=== PATIENT | female | born 1940 | race Caucasian/White ===

== ENCOUNTER 2016-08-10 11:36 | Emergency (ER) | payer MEDICARE, OTHER ==
[2016-08-10] MEDS ORDERED: ASPIRIN TABLET 325 MG TAB PO ONE (11:55)
[2016-08-10] MEDS ORDERED: HYDROcodone 5MG/APAP 325MG 1 EA TAB PO ONE (11:56)
--- NOTE | 2016-08-10 12:32 | RAD ---
EXAM DESCRIPTION: XR CHEST 2 VIEWS CLINICAL HISTORY: chest pain COMPARISON: None Available. TECHNIQUE: Two-views of the chest. FINDINGS: Normal heart size. Mildly tortuous aorta. Minimal faint opacity in the frontal radiograph left costophrenic angle compatible with atelectasis or early infiltrate. Right lung is clear. No pleural effusion. No pneumothorax Multilevel disk degeneration in the thoracolumbar spine. No acute bony abnormality IMPRESSION: Left lower lung zone small opacity probably subsegmental atelectasis or early focal infiltrate, nonspecific Electronically signed by: Rory Clark MD 08/10/2016 12:29
[2016-08-10] MEDS ORDERED: cefTRIAXone SODIUM 1 GM in SODIUM CHL 0.9% 50ML MIN-BAG+ 50 ML IVPB ONE (13:10)
[2016-08-10] MEDS ORDERED: IPRATROPIUM/ALBUTEROL 3 ML VIAL NEB ONE (13:11)
[2016-08-10] MEDS ORDERED: cefTRIAXone SODIUM 1 GM VIAL ONE (13:26)
[2016-08-10] MEDS ORDERED: SODIUM CHL 0.9% 50ML MIN-BAG+ 50 ML IVPB ONE (13:27)
--- NOTE | 2016-08-10 16:42 | ED.PDOC ---
History of Present Illness - General Chief Complaint: Chest Pain/IA Stated Complaint: chest pain Time Seen by Provider: 08/10/16 11:54 Source: patient Exam Limitations: no limitations - History of Present Illness Initial Comments: the patient is a 75-year-old femalepresented to the emergency room secondary to chest pain directly to the left of the sternum. It is primarily at the lower border of the sternum. It is significantly tender to palpation. No bruising and no deformity is noted. It is worse with taking a deep breath. It is worse with twisting and turning. Pain has been present and worsening for the last 24-36 hours. No syncope or near syncope and no palpitations. Pain is not made worse with aerobic activity. No back pain. Timing/Duration: 24 hours Severity: moderate Improving Factors: immobilization Worsening Factors: movement Associated Symptoms: chest pain, malaise Allergies/Adverse Reactions: Allergies NO KNOWN ALLERGY Allergy (Verified 09/14/12 08:25) Home Medications: Ambulatory Orders Amlodipine Besylate 10 mg PO HS 09/14/12 Atorvastatin Calcium [Lipitor] 40 mg PO HS 09/14/12 Glimepiride 4 mg PO DAILY 09/14/12 Insulin Detemir [Levemir Flexpen] 30 unit SC HS 09/14/12 Linagliptin [Tradjenta] 5 mg PO AM 09/14/12 Lisinopril & Hydrochlorothiazi [Lisinopril/Hydrochlorothi] 20 - 25 tab PO AM Metoprolol Succinate [Metoprolol Succinate ER] 200 mg PO HS 09/14/12 Omeprazole 40 mg PO BEDTIME 05/29/13 Aspirin [Baby Aspirin] 81 mg PO QD 12/07/13 Levofloxacin 500 mg PO DAILY #7 tab 08/10/16 Review of Systems - Review of Systems Constitutional: States: no symptoms reported EENTM: States: no symptoms reported Respiratory: States: no symptoms reported Cardiology: States: see HPI Gastrointestinal/Abdominal: States: no symptoms reported Genitourinary: States: no symptoms reported Musculoskeletal: States: no symptoms reported Skin: States: no symptoms reported Neurological: States: no symptoms reported Endocrine: States: no symptoms reported Hematologic/Lymphatic: States: no symptoms reported All other Systems: No Change from Baseline Past Medical History (General) - Patient Medical History Hx Seizures: No Hx Stroke: No Hx Asthma: No Hx of COPD: No Hx Cardiac Disorders: No Hx Congestive Heart Failure: No Hx Pacemaker: No Hx Hypertension: Yes Hx Diabetes: Yes Hx Cancer: No Hx MRSA: No Surgical History: cholecystectomy - Vaccination History Hx Tetanus, Diphtheria Vaccination: No Hx Influenza Vaccination: Yes Hx Pneumococcal Vaccination: Yes - Social History Hx Alcohol Use: No Hx Substance Use: No Hx Physical Abuse: No Hx Emotional Abuse: No - Female History Patient is a Female of Child Bearing Age (10 -59 yrs old): No Family Medical History - Family History Mother Family History: Unknown Physical Exam - Physical Exam General Appearance: Alert, Anxious, No apparent distress Eye Exam: bilateral normal Ears, Nose, Throat: normal ENT inspection, normal pharynx Neck: non-tender, full range of motion, supple Respiratory: lungs clear, normal breath sounds, no respiratory distress, no accessory muscle use Cardiovascular/Chest: normal peripheral pulses, regular rate, rhythm, no edema Peripheral Pulses: radial,right: 2+, radial,left: 2+, dorsalis pedis,right: 2+, dorsalis pedis,left: 2+ Gastrointestinal/Abdominal: normal bowel sounds, non tender, soft Rectal Exam: deferred Back Exam: normal inspection, no CVA tenderness Extremity: normal range of motion, non-tender, normal inspection, no pedal edema , normal capillary refill Neurologic: alert, normal mood/affect, oriented x 3 Skin Exam: normal color Comments: Vital Signs - 24 hr 08/10/16 08/10/16 11:54 12:43 Temperature 97.6 F Pulse Rate [ 69 65 monitor] Respiratory 20 20 Rate Blood Pressure 191/102 141/62 [LA] O2 Sat by Pulse 95 96 Oximetry Progress - Progress Progress: 08/10/16 16:43 the patient is a 75-year-old female but appears to have significant costochondritis possibly due to an underlying left lower pneumonia. The patient received a dose of Rocephin here. She'll be placed on oral Levaquin for the next 7 days. ER warnings were given for any worsening. Motrin or Tylenol can be used for discomfort. She needs to keep herself well hydrated and she was mildly dehydrated here today. She needs to follow up with her primary care doctor before the weekend. - Results/Orders Results/Orders: Laboratory Tests 08/10/16 08/10/16 11:55 15:45 WBC 6.3 RBC 4.46 Hgb 12.6 Hct 37.0 MCV 83.1 MCH 28.2 MCHC 34.0 RDW 13.4 Plt Count 221 MPV 8.5 Absolute Neuts (auto) 3.40 Absolute Lymphs (auto) 2.00 Absolute Monos (auto) 0.60 Absolute Eos (auto) 0.20 Absolute Basos (auto) 0.00 Neutrophils % 54.9 Lymphocytes % 32.0 Monocytes % 9.2 H Eosinophils % 3.3 Basophils % 0.6 PT 10.7 INR 0.950 PTT (SP) 34.4 D-Dimer, Quantitative 317 H* Sodium 139 Potassium 4.0 Chloride 102 Carbon Dioxide 28 Anion Gap 13.0 BUN 34 H Creatinine 1.44 H BUN/Creatinine Ratio 23.6 H Random Glucose 187 H Serum Osmolality 290.1 Calcium 9.9 Total Bilirubin 0.5 AST 35 ALT 28 Alkaline Phosphatase 67 Creatine Kinase 148 H 136 CK-MB (CK-2) 2.0 2.0 CK-MB (CK-2) % Not Reportable Not Reportable Troponin I 0.08 H* < 0.02 B-Natriuretic Peptide 166.0 H Serum Total Protein 8.2 Albumin 4.3 Globulin 3.9 H Albumin/Globulin Ratio 1.1 Amylase 88 Lipase 37 chest x-ray shows a left basilar and possibly lingular pneumonia versus atelectasis. EKG shows normal sinus rhythm with a right bundle branch block. No new acute ST segment changes consistent with acute ischemia. Departure - Departure Clinical Impression: Costochondritis, acute, Dehydration Pneumonia Qualifiers: Pneumonia type: due to unspecified organism Laterality: left Lung location: lower lobe of lung Qualifier Code: (J18.9) Pneumonia, unspecified organism Disposition: Discharge to Home or Self Care Condition: Fair Departure Forms: ED Discharge - Pt. Copy, Patient Portal Self Enrollment Instructions: DI for Pneumonia -- Adult, DI for Costochondritis Diet: diabetic diet Activity: increase activity as tolerated Referrals: Cesar Lyons III, MD [Primary Care Provider] - 1-2 Weeks Prescriptions: Levofloxacin 500 mg PO DAILY #7 tab Home Medications: Ambulatory Orders Amlodipine Besylate 10 mg PO HS 09/14/12 Atorvastatin Calcium [Lipitor] 40 mg PO HS 09/14/12 Glimepiride 4 mg PO DAILY 09/14/12 Insulin Detemir [Levemir Flexpen] 30 unit SC HS 09/14/12 Linagliptin [Tradjenta] 5 mg PO AM 09/14/12 Lisinopril & Hydrochlorothiazi [Lisinopril/Hydrochlorothi] 20 - 25 tab PO AM Metoprolol Succinate [Metoprolol Succinate ER] 200 mg PO HS 09/14/12 Omeprazole 40 mg PO BEDTIME 05/29/13 Aspirin [Baby Aspirin] 81 mg PO QD 12/07/13 Levofloxacin 500 mg PO DAILY #7 tab 08/10/16 Additional Instructions: the patient is a 75-year-old female but appears to have significant costochondritis possibly due to an underlying left lower pneumonia. The patient received a dose of Rocephin here. She'll be placed on oral Levaquin for the next 7 days. ER warnings were given for any worsening. Motrin or Tylenol can be used for discomfort. She needs to keep herself well hydrated and she was mildly dehydrated here today. She needs to follow up with her primary care doctor before the weekend.
[2016-08-10 17:53] VITALS: O2SAT 97
[2016-08-10 17:55] VITALS: BP 148/84; TEMP 97
== END 2016-08-10 16:40 | disposition home or self-care (01) ==
LOC: ER 11:36
DX: J18.9 Pneumonia, unspecified organism (principal); I10 Essential (primary) hypertension; E11.9 Type 2 diabetes mellitus without complications; Z79.899 Other long term (current) drug therapy; Z79.4 Long term (current) use of insulin; Z79.82 Long term (current) use of aspirin
CPT/HCPCS: 36415; 71020; 80053; 82150; 82550; 82553; 83690; 83880; 84484; 85025; 85379; 85610; 85730; 93005; J0696; J7050; J7620

== ENCOUNTER → 2017-03-03 | Outpatient (CLI) | payer MEDICARE, OTHER | LOC: GMAL 16:35 | PROVIDERS: ATTEND Family Medicine | DX: R07.2 Precordial pain (principal) ==

== ENCOUNTER → 2017-03-04 | Outpatient (CLI) | payer MEDICARE, OTHER ==
--- NOTE | 2017-03-04 13:41 | CT ---
EXAM DESCRIPTION: Chest w/o Contrast CLINICAL HISTORY: CHEST PAIN COMPARISON: Chest radiographs 08/10/2016 TECHNIQUE: Multiple axial images of the chest without contrast Multiplanar reconstructions were provided. This exam was performed according to our departmental dose-optimization program, which includes automated exposure control, adjustment of the mA and/or kV according to patient size and/or use of iterative reconstruction technique. FINDINGS: Lungs: There is no consolidation, pleural effusion, or pneumothorax. Mediastinum: Somewhat limited evaluation due to lack of IV contrast. The heart is normal in size. Severe coronary artery atherosclerosis with calcific plaque in the thoracic aorta. Coronary artery stents may also be present. The trachea and esophagus are unremarkable. Lymph nodes: Somewhat limited evaluation due to lack of IV contrast, but there is no overt mediastinal or hilar samuel enlargement based on CT size criteria. Chest wall and lower neck: No significant finding. Bones: Multilevel spondylitic changes in the thoracic spine. No destructive osseous lesion. Upper abdomen: Severe atherosclerotic plaque in the upper abdominal aorta. Cholecystectomy clips. IMPRESSION: 1. No acute noncontrast CT chest findings. 2. Atherosclerosis. 3. Other findings as above. Electronically signed by: Prince Perez MD 03/04/2017 1:39 PM CDT
== END | disposition home or self-care (01) ==
LOC: CT 09:18
PROVIDERS: ATTEND Family Medicine
DX: R07.2 Precordial pain (principal)

== ENCOUNTER → 2017-03-19 | Outpatient (CLI) | payer MEDICARE, OTHER | END | disposition home or self-care (01) | LOC: GMAL 10:48 | PROVIDERS: ATTEND Family Medicine | DX: R79.9 Abnormal finding of blood chemistry, unspecified (principal) ==

== ENCOUNTER → 2017-04-07 | Outpatient (CLI) | payer MEDICARE, OTHER | END | disposition home or self-care (01) | LOC: GMAL 12:32 | PROVIDERS: ATTEND Family Medicine | DX: N18.4 Chronic kidney disease, stage 4 (severe) (principal); M10.9 Gout, unspecified ==

== ENCOUNTER → 2017-04-12 | Outpatient (CLI) | payer MEDICARE, OTHER | END | disposition home or self-care (01) | LOC: GMAL 14:19 | PROVIDERS: ATTEND Family Medicine | DX: R53.82 Chronic fatigue, unspecified (principal); D53.9 Nutritional anemia, unspecified ==

== ENCOUNTER → 2017-04-26 | Outpatient (CLI) | payer MEDICARE, OTHER | END | disposition home or self-care (01) | LOC: GMA 16:29 | PROVIDERS: ATTEND Physician Assistant | DX: R60.9 Edema, unspecified (principal); R06.02 Shortness of breath ==

== ENCOUNTER → 2017-05-31 | Outpatient (CLI) | payer MEDICARE, OTHER ==
--- NOTE | 2017-06-02 13:32 | MAM ---
EXAM DESCRIPTION: 3D Screening BILATERAL : Digital Mammography. CLINICAL HISTORY: 76 years Female SCREENING . No complaints. No family history breast cancer. Postmenopausal. No HRT. COMPARISON: 2-D digital screening bilateral studies 05/26/2016 and 05/22/2015. Report from prior examination also reviewed. TECHNIQUE: Bilateral CC and MLO projection full-field images, 3-D tomosynthesis digital mammographic technique. Also bilateral synthesized CC/ MLO full-field images. CAD not utilized. Note: MLO images are limited due to patient wanting to pull the ipsilateral arm back from the optimal position, despite multiple attempts. FINDINGS: The breast parenchymal density pattern is: Heterogeneously dense breast tissue, which may obscure small masses. No skin thickening or nipple retraction Bilateral solitary microcalcifications. Bilateral vascular calcifications. No focal, stellate mass or density, focal asymmetry , and no suspicious microcalcifications bilaterally. Stable mammograms compared to prior study, taking into account differences in mammographic technique IMPRESSION: BI-RADS CATEGORY: 2 - BENIGN FINDINGS. FOLLOW UP: Routine digital bilateral screening, one year interval from May 2017. Written communication explaining the IMPRESSION and follow-up, will be mailed to the patient and referring health care provider. According to the [employer], yearly mammograms are recommended starting at age 40 and continuing as long as a woman is in good health. Any breast change noted on a breast self-exam should be reported promptly to the patient's healthcare provider. Breast MRI is recommended for women with an approximately 20-25% or greater lifetime risk of breast cancer, including women with a strong family history of breast or ovarian cancer and women who have been treated for Hodgkin's disease. A negative mammographic report should not delay tissue diagnosis in patients with significant clinical history or physical findings. Extremely dense breast tissue limits the sensitivity of digital mammography. Electronically signed by: Kuldeep Rivera MD 06/02/2017 1:31 PM [employer]
== END ==
LOC: MAMMO 11:38
PROVIDERS: ATTEND Family Medicine
DX: Z12.31 Encounter for screening mammogram for malignant neoplasm of breast (principal)
CPT/HCPCS: 77063; G0202

== ENCOUNTER 2017-06-26 14:28 | Emergency (ER) | payer MEDICARE, OTHER ==
[2017-06-26] MEDS ORDERED: DEXTROSE 10% 500ML 500 ML IVS PRN (14:31)
[2017-06-26 15:16] VITALS: TEMP 97.7
--- NOTE | 2017-06-26 15:25 | ED.PDOC ---
History of Present Illness - General Chief Complaint: Diabetic Complaint Stated Complaint: low blood sugar Time Seen by Provider: 06/26/17 14:31 Source: patient, RN notes reviewed, Vital Signs reviewed, EMS notes reviewed, family Additional Information: Altered mental status due to low blood sugar. Improved/resolved with D50 provided by EMS. Patient currently without complaints. Family member confirms that patient is back to her baseline. - History of Present Illness Timing/Duration: 1-3 hours - [employer] Severity: moderate Improving Factors: other - Glucose Worsening Factors: nothing Associated Symptoms: denies symptoms Allergies/Adverse Reactions: Allergies NO KNOWN ALLERGY Allergy (Verified 09/14/12 08:25) Home Medications: Ambulatory Orders Amlodipine Besylate 10 mg PO HS 09/14/12 Atorvastatin Calcium [Lipitor] 40 mg PO HS 09/14/12 Glimepiride 4 mg PO DAILY 09/14/12 Insulin Detemir [Levemir Flexpen] 30 unit SC HS 09/14/12 Linagliptin [Tradjenta] 5 mg PO AM 09/14/12 Lisinopril & Hydrochlorothiazi [Lisinopril/Hydrochlorothi] 20 - 25 tab PO AM Metoprolol Succinate [Metoprolol Succinate ER] 200 mg PO HS 09/14/12 Omeprazole 40 mg PO BEDTIME 05/29/13 Aspirin [Baby Aspirin] 81 mg PO QD 12/07/13 Levofloxacin 500 mg PO DAILY #7 tab 08/10/16 Review of Systems - Review of Systems Constitutional: States: no symptoms reported EENTM: States: no symptoms reported Respiratory: States: no symptoms reported Cardiology: States: no symptoms reported Gastrointestinal/Abdominal: States: no symptoms reported Genitourinary: States: no symptoms reported Musculoskeletal: States: no symptoms reported Skin: States: no symptoms reported Neurological: States: no symptoms reported Endocrine: States: no symptoms reported Hematologic/Lymphatic: States: no symptoms reported Past Medical History (General) - Patient Medical History Hx Seizures: No Hx Stroke: No Hx Asthma: No Hx of COPD: No Hx Cardiac Disorders: No Hx Congestive Heart Failure: No Hx Pacemaker: No Hx Hypertension: Yes Hx Diabetes: Yes Hx Cancer: No Hx MRSA: No Surgical History: cholecystectomy - Vaccination History Hx Tetanus, Diphtheria Vaccination: No Hx Influenza Vaccination: Yes Hx Pneumococcal Vaccination: Yes - Social History Hx Tobacco Use: No Hx Alcohol Use: No Hx Substance Use: No Hx Physical Abuse: No Hx Emotional Abuse: No Family Medical History - Family History Mother Family History: Unknown Physical Exam - Physical Exam General Appearance: Alert, Comfortable, No apparent distress Eye Exam: bilateral normal Ears, Nose, Throat: hearing grossly normal, normal ENT inspection, normal pharynx Neck: non-tender, full range of motion, supple Respiratory: lungs clear, no respiratory distress, no accessory muscle use Cardiovascular/Chest: regular rate, rhythm Gastrointestinal/Abdominal: non tender, soft Back Exam: normal inspection Extremity: normal range of motion, non-tender, normal inspection Neurologic: rn urology II-XII nml as tested, no motor/sensory deficits, alert, normal mood/affect, oriented x 3 Skin Exam: normal color Lymphatic: no adenopathy Progress - Progress Progress: 06/26/17 15:30 Pt's symptoms resolved with glucose. Pt is stable for d/c home with recommendations to adjust her Insulin regimen. - Results/Orders Results/Orders: 06/26/17 14:31 Dextrose 10% 500Ml [D10W 500ml] 500 ml IVS .QD Laboratory Results - last 24 hr 06/26/17 14:31 POC Glucose 144 H Vital Signs Temp 97.7 F 06/26/17 15:13 Pulse 56 L 06/26/17 15:13 Resp 16 06/26/17 15:13 BP 165/72 06/26/17 15:13 Pulse Ox 97 06/26/17 15:13 Intake & Output 06/25/17 06/26/17 06/26/17 18:59 06:59 18:59 Weight 80.739 kg Other: Weight Measurement Method Stated by Patient 06/26/17 15:13 Temperature 97.7 F Pulse Rate [ 56 L Right Brachial] Respiratory 16 Rate Blood Pressure 165/72 [Right Arm] O2 Sat by Pulse 97 Oximetry Departure - Departure Clinical Impression: Hypoglycemia Time of Disposition: 15:45 Disposition: Discharge to Home or Self Care Condition: Fair Departure Forms: ED Discharge - Pt. Copy, Patient Portal Self Enrollment Instructions: DI for Hypoglycemia Referrals: Cesar Lyons III, MD [Primary Care Provider] - 1-5 Days Home Medications: Ambulatory Orders Amlodipine Besylate 10 mg PO HS 09/14/12 Atorvastatin Calcium [Lipitor] 40 mg PO HS 09/14/12 Glimepiride 4 mg PO DAILY 09/14/12 Insulin Detemir [Levemir Flexpen] 30 unit SC HS 09/14/12 Linagliptin [Tradjenta] 5 mg PO AM 09/14/12 Lisinopril & Hydrochlorothiazi [Lisinopril/Hydrochlorothi] 20 - 25 tab PO AM Metoprolol Succinate [Metoprolol Succinate ER] 200 mg PO HS 09/14/12 Omeprazole 40 mg PO BEDTIME 05/29/13 Aspirin [Baby Aspirin] 81 mg PO QD 12/07/13 Levofloxacin 500 mg PO DAILY #7 tab 08/10/16 Additional Instructions: Stop Insulin for now. Retake at 1/2 the prescribed dose if blood sugar rises to 300 or more. Coordinate with Primary Care Provider in order to adjust your insulin regimen.
[2017-06-26 15:42] VITALS: BP 185/65; O2SAT 95
== END 2017-06-26 15:42 | disposition home or self-care (01) ==
LOC: ER 14:28
DX: E11.649 Type 2 diabetes mellitus with hypoglycemia without coma (principal); I10 Essential (primary) hypertension; Z79.4 Long term (current) use of insulin; Z79.82 Long term (current) use of aspirin
CPT/HCPCS: 82948; J7799

== ENCOUNTER → 2017-09-08 | Outpatient (CLI) | payer MEDICARE, OTHER | LOC: GMAL 14:21 | PROVIDERS: ATTEND Family Medicine | DX: N18.4 Chronic kidney disease, stage 4 (severe) (principal); M10.9 Gout, unspecified ==

== ENCOUNTER → 2017-11-11 | Outpatient (CLI) | payer MEDICARE, OTHER | LOC: LAB.O 08:09 | PROVIDERS: ATTEND Family Medicine | DX: N18.4 Chronic kidney disease, stage 4 (severe) (principal); D51.3 Other dietary vitamin B12 deficiency anemia; D63.8 Anemia in other chronic diseases classified elsewhere; D50.9 Iron deficiency anemia, unspecified ==

== ENCOUNTER → 2017-12-24 | Outpatient (CLI) | payer MEDICARE, OTHER ==
--- NOTE | 2017-12-24 12:33 | MRI ---
EXAM DESCRIPTION: Cervical Spine: MRI. CLINICAL HISTORY: CERVICAL RADICULOPATHY COMPARISON: Cervical TECHNIQUE: Multiplanar MRI, multiple sequences, non-contrast High-field. FINDINGS: C2-3: Disc desiccation and disc space preserved. Tiny posterior midline bulge to the right of midline. Right uncinate spur and minimal narrowing of the right neural foramen. Canal and left neuroforamen are patent. Minimal arthrosis right facet. C3-4: Posterior midline bulge 3 mm abutting the cord. Bilateral facet arthrosis right more than left. Bilateral uncinate spurs. Bilateral moderate neural foraminal narrowing. Moderate canal narrowing. C4-5: Minimal disc desiccation and disc space loss. Anterior bulging. Bilateral uncinate spurs with mild neural foraminal narrowing. Minimal arthrosis on the left. C5-6: Disc desiccation anterior bulging and endplate ridging. Posterior disc space loss and posterior Modic type II endplate reactive changes. Disc spur complex encroaching on the cord. Hypertrophy of the posterior flavum ligaments encroaching on the posterior cord. Mild central canal stenosis. Right neuroforamen patent and moderate left neural foraminal narrowing. Left facet arthrosis. C6-7: Disc desiccation posterior disc space loss. Anterior bulging and endplate ridging. Posterior broad-based disc osteophyte complex bulge impressing on the cord. Posterior Modic type II endplate reactive changes. Posterior flavum ligaments hypertrophy encroaching on the posterior cord. Mild central canal stenosis. Left uncinate spur. Left neural foraminal stenosis and moderate right neural foraminal narrowing. Bilateral facets are unremarkable. C7-T1: Disc desiccation and trace anterolisthesis. Right uncinate spur and moderate neural foraminal narrowing. Left neuroforamen patent. Hypertrophy of the posterior ligaments with mild canal narrowing more on the left. Left facet arthrosis. Normal signal in the T1-2 disc with no bulging. Disc spaces preserved. Canal and neural foramina are patent. Facets negative Spinal alignment reduced lordosis with no scoliosis.. No cord compression or cord edema. Atlantoaxial joint is moderately hypertrophied with the posterior capsule abutting the anterior medullary cord junction.. Base of the cerebellar tonsils is above the foramen magnum. Paravertebral soft tissues are unremarkable.. Vertebral bodies are not compressed at any level. Normal marrow signal in the remaining vertebral bodies and the posterior elements. IMPRESSION: 1. Posterior midline bulge of the C3-4 disc. Bilateral moderate neural foraminal and mild canal narrowing. 2. Posterior disc C5-6 spur complex 3 mm encroaching on the cord. Hypertrophy of the posterior flavum ligaments. Mild central canal stenosis. Moderate left neural foraminal narrowing. 3. Posterior broad-based disc osteophyte complex 3 mm bulge impressing on the cord. Hypertrophy of the posterior flavum ligaments. Mild central canal stenosis. Left neural foraminal stenosis. 4. C7-T1 right uncinate spur and moderate left neural foraminal narrowing. Left facet arthrosis. Electronically signed by: Kuldeep Rivera MD 12/24/2017 12:32 PM CDT
== END ==
LOC: MRI 09:54
PROVIDERS: ATTEND Orthopaedic Surgery
DX: M50.11 Cervical disc disorder with radiculopathy, high cervical region (principal); M50.122 Cervical disc disorder at C5-C6 level with radiculopathy

== ENCOUNTER → 2017-12-28 | Outpatient (CLI) | payer MEDICARE, OTHER ==
--- NOTE | 2017-12-28 12:50 | RAD ---
EXAM DESCRIPTION: Chest,2 Views CLINICAL HISTORY: POSSIBLE PANCOAST TUMOR COMPARISON: August 10, 2016. CT scan March 04, 2017 FINDINGS: Two-view chest x-ray shows mild enlargement of the cardiac silhouette without pulmonary vascular congestion. Mild elevation of the right hemidiaphragm is stable from previous. The lungs are normally aerated and clear. Costophrenic angles are sharp. Moderate disc degenerative changes of the thoracic spine are seen. No bone destructive changes of the ribs are identified. IMPRESSION: No radiographic evidence of acute cardiopulmonary disease. Mild cardiomegaly. No apical masses seen on x-ray imaging. Consider further evaluation with CT if clinically indicated. Electronically signed by: Dg Kellogg MD 12/28/2017 12:49 PM CDT
== END ==
LOC: RAD 10:13
PROVIDERS: ATTEND Orthopaedic Surgery
DX: I51.7 Cardiomegaly (principal); M54.12 Radiculopathy, cervical region

== ENCOUNTER → 2018-02-18 | Outpatient (CLI) | payer MEDICARE, OTHER ==
--- NOTE | 2018-02-18 09:00 | RAD ---
EXAM DESCRIPTION: Hand,Left 3 Views CLINICAL HISTORY: LEFT HAND PAIN M79.642 COMPARISON: None FINDINGS: 3 views of left hand. No acute fracture, dislocation or aggressive bone lesion is demonstrated. Joint space calcifications are present throughout the hand most commonly associated with calcium pyrophosphate dihydrate deposition disease/pseudogout. No acute fractures are present. Bone mineralization is within normal limits for patient's age. Usual degenerative arthritis is noted throughout the interphalangeal joints. IMPRESSION: Calcium pyrophosphate dihydrate deposition disease. No radiographic evidence for acute pathology. Electronically signed by: Quoc Monae MD 02/18/2018 8:59 AM CDT
--- NOTE | 2018-02-18 09:02 | RAD ---
EXAM DESCRIPTION: Fingers,Left CLINICAL HISTORY: PAIN IN LEFT FINGERS M79.645 COMPARISON: None FINDINGS: 3 views of the left third digit. No acute fracture, desiccation aggressive bone lesion is present. Joint space calcifications commonly associated with calcium pyrophosphate dihydrate deposition disease/pseudogout. Bone mineralization appears within normal limits. No erosions are demonstrated. Usual degenerative osteoarthritis within the distal interphalangeal joint is noted. Mild soft tissue swelling/prominence. 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 Negative for acute osseous pathology. Electronically signed by: Quoc Monae MD 02/18/2018 9:00 AM CDT
== END ==
LOC: RAD 08:00
PROVIDERS: ATTEND Orthopaedic Surgery
DX: M79.642 Pain in left hand (principal); M79.645 Pain in left finger(s); M19.042 Primary osteoarthritis, left hand; M11.1 Familial chondrocalcinosis

== ENCOUNTER 2018-02-23 05:27 | Day surgery (SDC) | payer MEDICARE, OTHER ==
[2018-02-23] MEDS ORDERED: SODIUM CHL 0.9% 100ML MINI-BAG 100 ML IVPB ONE (08:48)
[2018-02-23] MEDS ORDERED: ceFAZolin SODIUM 1 GM VIAL ONE (08:49)
[2018-02-23] MEDS ORDERED: LACTATED RINGERS 1,000 ML ONE (08:49)
[2018-02-23] MEDS: ceFAZolin SODIUM 1 GM VIAL ONE ×2 (09:43→10:13)
[2018-02-23 09:44] VITALS: BP 177/74; TEMP 97; O2SAT 98
[2018-02-23] MEDS ORDERED: BUPIVACAINE 0.25% INJ 30 ML VIAL INJ ONE (09:45)
[2018-02-23] MEDS ORDERED: LIDOCAINE 1% 10 ML VIAL INJ ONE ×2 (09:45→10:00)
[2018-02-23] MEDS ORDERED: VANCOMYCIN HCL INJ 1,000 MG VIAL IVPB ONE (09:51)
[2018-02-23] MEDS ORDERED: PROPOFOL 200 MG/20 ML VIAL IV ONE (10:00)
--- NOTE | 2018-03-04 13:16 | OP ---
DATE OF PROCEDURE: 02/23/18 PREOPERATIVE DIAGNOSIS: 1. Left third trigger finger. POSTOPERATIVE DIAGNOSIS: 1. Left third trigger finger. PROCEDURE: 1. Trigger finger release. SURGEON: Odilon Obrien MD. HAND NAILER: Kuldeep Gomez CST, SA-C. ANESTHESIA: Local with sedation. COMPLICATIONS: None. FINDINGS: Triggering at the A1 martell. INDICATION: Ms. Trent has a history of both pain and triggering at the A1 martell. She has requested operative intervention. After discussing the risks, benefits and alternatives to operative therapy, the patient has given informed consent for trigger finger release. PROCEDURE: The patient was brought to the Operating Room and placed in the supine position. Sedation was administered and local anesthetic was injected into the operative area. Following injection, the arm was sterilely prepped and draped. A transverse incision was made directly overlying the A1 martell of the triggering digit and blunt dissection was carried down to the martell while protecting the digital nerves. After identification of the martell, the martell was transected and a [place] elevator was passed both proximally and distally to ensure complete release. The finger was flexed and extended and there was no evidence of locking or clicking. The wound was thoroughly irrigated and closed with Nylon suture. A sterile dressing was placed and the patient was taken to the Day Surgery Unit. POSTOPERATIVE INSTRUCTIONS: The patient has been encouraged to do range of motion of the digits and will followup with us in two days. #[id number] [facility]
== END 2018-02-23 11:20 | disposition home or self-care (01) ==
LOC: AMB 05:27
PROVIDERS: ATTEND Orthopaedic Surgery
DX: M65.332 Trigger finger, left middle finger (principal); I10 Essential (primary) hypertension; E11.9 Type 2 diabetes mellitus without complications; K21.9 Gastro-esophageal reflux disease without esophagitis; Z96.652 Presence of left artificial knee joint; Z79.4 Long term (current) use of insulin; Z79.899 Other long term (current) drug therapy
CPT/HCPCS: 01810; 26055; 36415; 36416; 82948; 87070; 87077; J0690; J3370; J3490; J7050; J7120

== ENCOUNTER → 2018-03-15 | Outpatient (CLI) | payer MEDICARE, OTHER | LOC: GMAL 11:43 | PROVIDERS: ATTEND Family Medicine | DX: E55.9 Vitamin D deficiency, unspecified (principal) ==

== ENCOUNTER 2018-04-28 10:08 | Day surgery (SDC) | payer MEDICARE, OTHER ==
--- NOTE | 2018-04-28 08:57 | SSS ---
CHIEF COMPLAINT: Need for screening colonoscopy. HISTORY OF PRESENT ILLNESS: Holly is a 77-year-old female who presented to my office in routine followup. It was noted that she was due for a screening colonoscopy. She had had a colonoscopy 8 to 9 years ago and it was noted to be normal other some mild left sided diverticular disease. She denies any symptoms referable to her bowels. She denies any abdominal pain. She has no rectal bleeding or changes in her bowel habits. Of note, she has had a mild anemia over the last couple of years ranging from 10.2 to 11.5. It is felt this is secondary to chronic renal insufficiency. PAST MEDICAL HISTORY: 1. Hyperlipidemia. 2. Hypertension. 3. Carotid artery stenosis. 4. Fatty liver noted on liver biopsy at time of her cholecystectomy, but there was no fibrosis. This was 2013. 5. Gastroesophageal reflux disease. She had H. pylori that was successfully treated in the winter of and again in February of 2017 with Amoxil and Biaxin. 6. Benign osteochondroma of the right knee. 7. Non-insulin dependent diabetes mellitus, now insulin dependent. She does have microalbuminuria. 8. Nuclear stress test in January of 2017 that showed normal perfusion and ejection fraction of 70%. 9. Gout. 10. Chronic renal insufficiency. PAST SURGICAL HISTORY: 1. Laparoscopic cholecystectomy in 12/08/13. 2. Left total knee arthroplasty by Dr. Obrien. 3. Bilateral tubal ligation in 1971. 4. Left carpal tunnel release by Dr. Gutiérrez in March of 2011. 5. Bilateral cataract surgery by Dr. Banuelos in November and December of 2012. 6. Right carpal and cubital tunnel release by Dr. Gutiérrez in 01/04/18. 7. Left third trigger finger release by Dr. Obrien in January of 2018. CURRENT MEDICATIONS: 1. Irbesartan. 2. Metoprolol. 3. Crestor. 4. Novolin N. 5. Gemfibrozil. 6. Clonidine. 7. Hydralazine. 8. Uloric. 9. Norvasc. 10. Vitamin B12. ALLERGIES: ACTOS, BYETTA, TRADJENTA, VICTOZA. FAMILY HISTORY: Father in his 80s of ruptured aortic aneurysm. Mother in her 80s secondary to stroke, hypertension and diabetes. She has two brothers, one is . Other is Carlene Gannon with diabetes. Drew at age 40 due to a tractor accident. She has four sisters. Kimberly Sotokins from lymphoma and also had lupus. Timoteo Chisholm had hypertension and hyperlipidemia. Shae Tang has type 2 diabetes. She has one son, Maxi, with a history of lymphoma, one daughter, Sweta, with a history of Down's syndrome and transient ischemic attack in 2018 and had a brain stem infarct 5 years prior to that. SOCIAL HISTORY: She is retired. She worked at [employer] for [employer]. She has two children. She completed the twelfth grade and moved here from [place]. She has never smoked and does not drink alcohol. REVIEW OF SYSTEMS: Negative except as in the history of present illness. PHYSICAL EXAMINATION: VITAL SIGNS: Blood pressure 130/80. Pulse 60. Weight 179 pounds. GENERAL: She is awake, alert and in no acute distress. HEENT: Unremarkable. NECK: Supple. LUNGS: Clear. CARDIOVASCULAR: Regular rate and rhythm without appreciable murmurs. ABDOMEN: Soft, nontender. RECTAL: Deferred until time of colonoscopy. EXTREMITIES: Without edema. NEUROLOGIC: Nonfocal. ASSESSMENT: 1. Need for screening colonoscopy. 2. Chronic anemia felt to be secondary to chronic renal insufficiency. PLAN: Colonoscopy on 04/29/18. #[id number] [facility]
[~2018-04-28 10:08] MED LIST: LIDOCAINE 1% 10 ML VIAL INJ ONE; PROPOFOL 200 MG/20 ML VIAL IV ONE
[2018-04-29] MEDS ORDERED: LACTATED RINGERS 1,000 ML ONE (06:44)
[2018-04-29] MEDS ORDERED: LACTATED RINGERS 1,000 ML BAG IV ONE (07:25)
--- NOTE | 2018-04-29 08:59 | OP ---
DATE OF PROCEDURE: 04/29/18 PREOPERATIVE DIAGNOSIS: 1. Screening colonoscopy. POSTOPERATIVE DIAGNOSIS: 1. 0.25 by 0.25 cm cecal polyp, biopsied x1 to obliteration. 2. 0.75 by 0.75 cm proximal ascending colon polyp, removed by snare. 3. 0.25 by 0.25 cm distal ascending colon, biopsied x1 to obliteration. 4. Grade 2 to 3 internal hemorrhoids. PROCEDURE: 1. Colonoscopy. SURGEON: Cesar Lyons MD. ESTIMATED BLOOD LOSS: Less than 1 mL. COMPLICATIONS: No immediate complications. ANESTHESIA: Propofol 400 mg administered intravenously via Vijay Frausto CRNA. TECHNIQUE: After informed consent was obtained from the patient, the patient was taken to the Endoscopy Suite and placed in the left lateral decubitus position. Incremental doses of propofol were given until adequate sedation was obtained. Vital signs were monitored throughout the procedure and supplemental oxygen was administered throughout the procedure. Digital rectal examination was performed, which was unremarkable other than the hemorrhoids. The colonoscope was then advanced into the patient's rectum and up through the sigmoid, descending, transverse and ascending colon to the level of the cecum. The usual cecal landmarks were noted. Photograph of the appendiceal orifice was taken. The colonoscope was then slowly withdrawn. Overall, the bowel prep was good. There were a few areas of liquid stool in the transverse colon and effort was made to suction out as much of this as possible. In the cecum, a small 0.25 by 0.25 cm polyp was noted and biopsied x1 to obliteration. A bit more distal to this, in the proximal ascending colon, a larger, 0.75 by 0.75 cm colonic polyp was noted and removed by snare and retrieved. In the distal ascending colon, another 0.25 by 0.25 cm small polyp was noted and biopsied x1 to obliteration. No other polyps were noted throughout the colon. The scope was retroflexed upon itself in the rectum. The grade 2 to 3 internal hemorrhoids were noted. The colonoscope was then unretroflexed and air was suctioned out of the patient's rectum. PLAN: The patient will followup in my office in 7 to 10 days. We will consider repeating her colonoscopy in 2 to 3 years, depending on her health. I had a hard time getting her to do this one, so she may be reluctant to do another one, which at her age is not unreasonable. #[id number] [facility]
[2018-04-29 09:05] VITALS: BP 218/74; TEMP 96.2; O2SAT 96
== END 2018-04-29 09:00 | disposition home or self-care (01) ==
LOC: AMB 10:08
PROVIDERS: ATTEND Family Medicine
DX: Z12.11 Encounter for screening for malignant neoplasm of colon (principal); D12.2 Benign neoplasm of ascending colon; D12.0 Benign neoplasm of cecum; K64.2 Third degree hemorrhoids; D64.9 Anemia, unspecified; E78.5 Hyperlipidemia, unspecified; I65.29 Occlusion and stenosis of unspecified carotid artery; M10.9 Gout, unspecified; I25.10 Atherosclerotic heart disease of native coronary artery without angina pectoris; K21.9 Gastro-esophageal reflux disease without esophagitis; I12.9 Hypertensive chronic kidney disease with stage 1 through stage 4 chronic kidney disease, or unspecified chronic kidney disease; E11.22 Type 2 diabetes mellitus with diabetic chronic kidney disease; N18.9 Chronic kidney disease, unspecified; Z88.8 Allergy status to other drugs, medicaments and biological substances; Z96.652 Presence of left artificial knee joint; Z79.4 Long term (current) use of insulin; Z79.899 Other long term (current) drug therapy
CPT/HCPCS: 00812; 36416; 45380; 45385; 82948; 88305; J3490; J7120

== ENCOUNTER → 2018-06-16 | Outpatient (CLI) | payer MEDICARE, OTHER ==
--- NOTE | 2018-06-17 08:35 | MAM ---
EXAM DESCRIPTION: 3D Screening BILATERAL : Digital Mammography. CLINICAL HISTORY: 77 years Female SCREEN . No complaints. No personal or family history of breast cancer. Childbirth. Postmenopausal 26 years. No HRT.. Lifetime risk of developing breast cancer (Tyrer-Cuzick model)(%): 2.2. COMPARISON: Bilateral screening digital breast tomosynthesis 05/31/2017. TECHNIQUE: Bilateral CC and MLO projection full-field images, digital tomosynthesis mammographic technique. Bilateral digital 2-D full-field MLO images. CAD not available for tomosynthesis or 2-D images. FINDINGS: The breast parenchymal density pattern is: Heterogeneously dense breast tissue, which may obscure small masses. No skin thickening or nipple retraction. Bilateral solitary microcalcifications. Vascular calcifications bilaterally. No new focal, stellate mass or density, focal asymmetry , and no suspicious microcalcifications bilaterally. Stable mammograms compared to prior study. Taking into account, differences in mammographic technique. IMPRESSION: Benign exam. BIRAD CATEGORY: 2 BENIGN FINDINGS. RECOMMENDATIONS: FOLLOW UP: Routine digital bilateral mammographic screening, one year interval from May 2018. Written communication explaining the IMPRESSION and follow-up, will be mailed to the patient and referring health care provider. According to the [employer], yearly mammograms are recommended starting at age 40 and continuing as long as a woman is in good health. Any breast change noted on a breast self-exam should be reported promptly to the patient's healthcare provider. Breast MRI is recommended for women with an approximately 20-25% or greater lifetime risk of breast cancer, including women with a strong family history of breast or ovarian cancer and women who have been treated for Hodgkin's disease. A negative mammographic report should not delay tissue diagnosis in patients with significant clinical history or physical findings. Extremely dense breast tissue limits the sensitivity of digital mammography. Electronically signed by: Kuldeep Rivera MD 06/17/2018 8:34 AM [employer]
== END ==
LOC: MAMMO 11:30
PROVIDERS: ATTEND Family Medicine
DX: Z12.31 Encounter for screening mammogram for malignant neoplasm of breast (principal)

== ENCOUNTER → 2018-06-23 | Outpatient (CLI) | payer MEDICARE, OTHER | LOC: GMAL 11:55 | PROVIDERS: ATTEND Family Medicine | DX: N18.9 Chronic kidney disease, unspecified (principal); D63.1 Anemia in chronic kidney disease; E55.9 Vitamin D deficiency, unspecified ==

== ENCOUNTER → 2018-10-12 | Outpatient (CLI) | payer MEDICARE, OTHER ==
--- NOTE | 2018-10-12 22:05 | MRI ---
MRI right knee without contrast INDICATION: Knee pain swelling lateral side felt pop while walking TECHNIQUE: Noncontrast MR imaging right knee standard protocol FINDINGS: There is diffuse soft tissue swelling lateral greater than medial. Moderate joint effusion. Fairly diffuse up to grade 4 chondrosis medial patellar facet. Lower grade chondrosis in the remainder the patellofemoral joint. Cruciate ligaments are intact. Extensor tendons are intact. Small bodies in the popliteus sheath/recess sagittal series 401 image 19. Small body posterior to the PCL sagittal series 401 image 13. Multifocal synovitis/debris. Extensor tendons are intact. There is a complex posterior horn and body lateral meniscal tear with truncation and volume loss with fragment/body on sagittal series 401 image 24 posteriorly. This is macerated in appearance. No collateral ligament disruption. Mild fraying and volume loss body medial meniscus with partial medial extrusion. Fairly diffuse grade 3-4 chondral thinning in the medial and lateral tibiofemoral compartments with multifocal subchondral edema in the femoral condyles. 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
== END ==
LOC: MRI 08:00
PROVIDERS: ATTEND Family Medicine
DX: S83.271A Complex tear of lateral meniscus, current injury, right knee, initial encounter (principal); M23.303 Other meniscus derangements, unspecified medial meniscus, right knee; M22.2X1 Patellofemoral disorders, right knee; M65.861 Other synovitis and tenosynovitis, right lower leg

== ENCOUNTER → 2019-03-09 | Outpatient (CLI) | payer MEDICARE, OTHER | LOC: GMAL 10:27 | PROVIDERS: ATTEND Family Medicine | DX: E53.8 Deficiency of other specified B group vitamins (principal); D50.9 Iron deficiency anemia, unspecified; E55.9 Vitamin D deficiency, unspecified; I10 Essential (primary) hypertension ==

== ENCOUNTER → 2019-03-13 | Outpatient (CLI) | payer MEDICARE, OTHER | LOC: LAB.O 10:28 | PROVIDERS: ATTEND Family Medicine | DX: N18.3 Chronic kidney disease, stage 3 (moderate) (principal); E11.9 Type 2 diabetes mellitus without complications; D50.9 Iron deficiency anemia, unspecified ==

== ENCOUNTER → 2019-03-31 | Outpatient (CLI) | payer MEDICARE, OTHER | LOC: GMAL 11:19 | PROVIDERS: ATTEND Family Medicine | DX: Z79.899 Other long term (current) drug therapy (principal) ==

== ENCOUNTER → 2020-05-28 | Outpatient (CLI) | payer MEDICARE, OTHER ==
--- NOTE | 2020-05-30 19:59 | MAM ---
EXAM DESCRIPTION: 3D Screening BILATERAL : Digital Mammography. CLINICAL HISTORY: 79 years Female SCREENING . No complaints. No family history of breast cancer. Menarche age 13. Childbirth age 24. Menopause age unknown. No HRT.. Lifetime risk of developing breast cancer (Tyrer-Cuzick model)(%): 2.6. COMPARISON: Bilateral screening digital breast tomosynthesis, May 2018 and May 2017. TECHNIQUE: Bilateral CC and MLO projection full-field images, digital tomosynthesis mammographic technique. Bilateral digital 2-D full-field MLO images. CAD available for 2-D images. MLO images limited due to superior axillary fat, and patient physically unable to position shoulder for optimal MLO positioning. FINDINGS: The breast parenchymal density pattern is: Heterogeneously dense breast tissue, which may obscure small masses. Solitary microcalcifications. Vascular calcifications. No skin thickening or nipple retraction No new focal, stellate mass or density, focal asymmetry , and no suspicious microcalcifications bilaterally. IMPRESSION: Benign exam. BIRAD CATEGORY: 2 BENIGN FINDINGS. RECOMMENDATIONS: FOLLOW UP: Routine digital bilateral mammographic screening, one year interval from May 2020. Written communication explaining the IMPRESSION and follow-up, will be mailed to the patient and referring health care provider. According to the [employer], yearly mammograms are recommended starting at age 40 and continuing as long as a woman is in good health. Any breast change noted on a breast self-exam should be reported promptly to the patient's healthcare provider. Breast MRI is recommended for women with an approximately 20-25% or greater lifetime risk of breast cancer, including women with a strong family history of breast or ovarian cancer and women who have been treated for Hodgkin's disease. A negative mammographic report should not delay tissue diagnosis in patients with significant clinical history or physical findings. Extremely dense breast tissue limits the sensitivity of digital mammography. Electronically signed by: Kuldeep Rivera MD 05/30/2020 7:58 PM [employer]
== END ==
LOC: MAMMO 13:41
PROVIDERS: ATTEND Family Medicine
DX: Z12.31 Encounter for screening mammogram for malignant neoplasm of breast (principal)

== ENCOUNTER 2020-07-29 05:22 | Day surgery (SDC) | payer MEDICARE, OTHER ==
[2020-07-29] MEDS ORDERED: MOXIFLOXACIN HCL (OPHTH) 1 DROP DROPS ONE (05:43)
[2020-07-29] MEDS ORDERED: PROPARACAINE 0.5% OPHTH SOL 15 ML BTTL ONE (05:44)
[2020-07-29] MEDS ORDERED: TROP1%/CYCLOPEN 1%/PHENYL 2.5% DROPS ONE (05:44)
== END 2020-07-29 07:40 | disposition home or self-care (01) ==
LOC: AMB 05:22
PROVIDERS: ATTEND Ophthalmology
DX: E11.36 Type 2 diabetes mellitus with diabetic cataract (principal); H26.493 Other secondary cataract, bilateral; I10 Essential (primary) hypertension; Z79.82 Long term (current) use of aspirin; Z79.4 Long term (current) use of insulin; Z79.899 Other long term (current) drug therapy

== ENCOUNTER → 2020-07-30 | Outpatient (CLI) | payer MEDICARE, OTHER | LOC: GMAL 10:27 | PROVIDERS: ATTEND Family Medicine | DX: E53.8 Deficiency of other specified B group vitamins (principal); R53.82 Chronic fatigue, unspecified; E55.9 Vitamin D deficiency, unspecified; E11.9 Type 2 diabetes mellitus without complications; Z79.899 Other long term (current) drug therapy; E78.49 Other hyperlipidemia ==